=== PATIENT | female | born 1955 | race Two or more races ===

== ENCOUNTER 2017-03-21 22:42 | Emergency (ER) | payer OTHER ==
[~2017-03-21] VITALS: Ht 157.5 cm; Wt 54.4 kg
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
[2017-03-21] MEDS ORDERED: IBUPROFEN 400 MG TABLET PO ONE (23:30)
[2017-03-21] MEDS ORDERED: IBUPROFEN 400 MG TABLET ONE (23:41)
--- NOTE | 2017-03-22 00:22 | NUR ---
Patient discharged to home in stable condition. Written and verbal after care instructions given. Patient verbalizes understanding of instruction. ambulatory with a steady gait
[2017-03-22 00:30] VITALS: BP 157/68
== END 2017-03-22 00:30 | disposition home or self-care (01) ==
LOC: ER 22:50
DX: S20.211A Contusion of right front wall of thorax, initial encounter (principal); Z88.0 Allergy status to penicillin; V49.49XA Driver injured in collision with other motor vehicles in traffic accident, initial encounter; Y93.89 Activity, other specified; Y92.413 State road as the place of occurrence of the external cause; Y99.8 Other external cause status
CPT/HCPCS: 71010; 93005; 99284; A4606; Z7610